=== PATIENT | male | born 1950 | race Caucasian/White ===

== ENCOUNTER 2017-02-15 18:35 | Emergency (ER) | payer MEDICARE, OTHER ==
[~2017-02-15] VITALS: Ht 180.3 cm; Wt 98.0 kg
[~2017-02-15 18:35] MED LIST: DIAZ5 PO; LOTR5CAP2 PO
[2017-02-15 18:59] VITALS: BP 142/72; PULSE 57; RESP 18; TEMP 98.7; O2SAT 96
--- NOTE | 2017-02-15 20:09 | PD ---
HPI Chief Complaint: Head Injury Time Seen by Provider: 20:02 Travel History International Travel<30 days: No Contact w/Intl Traveler<30days: No Traveled to known affect area: No History of Present Illness HPI 66 year-old male presents to the emergency department by private transportation for evaluation of head injury. According to the patient he has a history of hypertension and parkinsonism. Patient states that last night he went to bed feeling well and during the night he thinks he had a vivid dream and as per the dream he rolled out of bed hitting his head on the carpeted floor. Patient states he awakened immediately. Patient states that he felt mildly lightheaded. Patient was able to ambulate on his own without assistance to the kitchen where he obtained ice applied denies back and went back to bed and slept until 8 AM. Patient noted upon awakening that he still had some lightheadedness but was able to function and do his normal activities. Patient was able to take his normal medications. Patient takes no blood thinning agents. Patient states he was able to drive to a Parkinson's related conference and stayed there for 3 hours. Patient was with his . Patient continued to feel fairly stable except for some mild lightheadedness and intermittent mild nausea. Patient has had no vomiting. Patient denies any sudden onset worst ever headache. Patient denies any new visual disturbance. Patient denies any difficulty with speech or swallowing. Patient denies any neck pain. Patient denies any upper or lower extremity numbness tingling or weakness. Patient's had no new ataxia of gait. Patient drove himself to the hospital. Patient rates his discomfort 3/10 in intensity. Patient denies other concerns or complaints. No bladder or bowel dysfunction. No upper or lower back pain. [facility] Past Medical History Narrative Medical Hypertension, Parkinson's disease, daily alcohol use; no surgeries; nursing notes reviewed Hx Anticoagulant Therapy: No Cardiovascular Problems: Yes (HTN) Diabetes: No Diminished Hearing: No Hypertension: Yes Parkinson's Disease: Yes Immunizations Current: Yes Tetanus Vaccination: Unknown Influenza Vaccination: Yes Social History Alcohol Use: Yes ([employer] WEEKLY) Tobacco Use: No Substance Use: No Allergies-Medications (Allergen,Severity, Reaction): Coded Allergies: No Known Allergies (Verified , 02/15/17) Reported Meds & Prescriptions Reported Meds & Active Scripts Active Reported Flomax (Tamsulosin HCl) 0.4 Mg Cap 0.4 Mg PO HS Diazepam 5 Mg Tab 5 Mg PO HS PRN Benazepril (Benazepril HCl) 10 Mg Tab 10 Mg PO DAILY Amlodipine (Amlodipine Besylate) 5 Mg Tab 5 Mg PO DAILY Parkinson's medication blood pressure medication Review of Systems Except as stated in HPI: all other systems reviewed are Neg General / Constitutional: No: Fever, Chills Eyes: No: Diploplia, Blurred Vision, Photophobia HENT: Positive: Lightheadedness, No: Headaches, Neck Stiffness, Neck Pain Cardiovascular: No: Chest Pain or Discomfort Respiratory: No: Shortness of Breath Gastrointestinal: Positive: Nausea, No: Vomiting, Abdominal Pain Genitourinary: No: Flank Pain Musculoskeletal: No: Myalgias, Arthralgias Skin: No Rash Neurologic: Positive: Dizziness, No: Weakness, Syncope, Focal Abnormalities, Coordination Problem, Headache, Change in Mentation, Slurred Speech, Paresthesia , Seizures, Sensory Disturbance Psychiatric: No: Anxiety Endocrine: No: Heat Intolerance Hematologic/Lymphatic: No: Easy Bruising Physical Exam Narrative GENERAL: Well-developed well-nourished male in no acute distress no respiratory distress; GCS 15 SKIN: Warm and dry. HEAD: Atraumatic. Normocephalic. No scalp soft tissue swelling no abrasion no laceration no bony abnormalities. EYES: Pupils equal and round. Extraocular muscles intact. No scleral icterus. No injection or drainage. ENT: No nasal bleeding or discharge. Mucous membranes pink and moist. No hemotympanum. Airway is patent. NECK: Trachea midline. No JVD. No midline tenderness to direct palpation along the cervical spine no bony step-off no paracervical spasm patient moves neck through normal range of motion without complaint of discomfort. CARDIOVASCULAR: Regular rate and rhythm. Chest wall: Nontender to direct palpation no ecchymosis or abrasion or rib tenderness. RESPIRATORY: No accessory muscle use. Clear to auscultation. Breath sounds equal bilaterally. GASTROINTESTINAL: Abdomen soft, non-tender, nondistended. Hepatic and splenic margins not palpable. MUSCULOSKELETAL: Extremities without clubbing, cyanosis, or edema. No obvious deformities. No abrasions no erythema no ecchymosis. Radial and dorsalis pedis pulses 2+ to palpation. NEUROLOGICAL: Awake and alert. GCS 15. No obvious cranial nerve deficits. Motor grossly within normal limits. Five out of 5 muscle strength in the arms and legs. No limb ataxia. Sensory exam intact. DTRs 2+ and equal bilateral upper and lower extremities. Normal speech. PSYCHIATRIC: Appropriate mood and affect; insight and judgment normal. Data Data Last Documented VS Vital Signs Date Time Temp Pulse Resp B/P Pulse Ox O2 Delivery O2 Flow Rate FiO2 02/15/17 20:26 64 18 139/75 98 Room Air 02/15/17 18:[address] Brain W/O Iv Contrast(Rout) (02/15/17 ) MDM Medical Decision Making Medical Screen Exam Complete: Yes Emergency Medical Condition: Yes Medical Record Reviewed: Yes Interpretation(s) Last Impressions Head CT 02/15/17 0000 Signed Impressions: Service Date/Time: Wednesday, February 15, 2017 20:07 - CONCLUSION: Unremarkable study. Wendy iSmon MD Vital Signs Date Time Temp Pulse Resp B/P Pulse Ox O2 Delivery O2 Flow Rate FiO2 02/15/17 20:26 64 18 139/75 98 Room Air 02/15/17 19:14 57 18 96 Room Air 02/15/17 18:59 98.7 57 18 142/72 96 Differential Diagnosis Closed head injury, concussion, ICH, Narrative Course Patient sent for CT brain noncontrast CT brain noncontrast reveals no acute abnormality; patient is stable for outpatient management with head injury precautions 24 hours. Patient encouraged not to drive vehicle handle heavy equipment climb swim or drink alcohol during 24-hour observation as an outpatient following head injury precautions. Patient encouraged to follow-up with his primary care physician call office in a.m. to schedule follow-up appointment. Patient encouraged to return to the emergency department for any concerns or change in condition. Patient given prescription for Zofran to take as needed for nausea. Diagnosis Primary Impression: Minor closed head injury Referrals: Primary Care Physician 1 day Patient Instructions: General Instructions Additional Instructions: Continue current medications as presently prescribed Take acetaminophen as needed for fever 100.4F or greater or for mild discomfort Follow head injury precautions for [address] handle heavy equipment drink alcohol climb ladders or swim for the next 24 hours Follow-up with primary care provider; call office in a.m. to schedule follow-up appointment Return to the emergency department for any concerns or change in condition Med/Other Pt SpecificInfo: Prescription(s) given Scripts Ondansetron Odt (Zofran Odt)4 Mg Tab4 Mg SL Q6HR PRN (Nausea/Vomiting) #7 TAB Ref 0 Prov:Sarah Bradley MD 02/15/17 Disposition: 01 DISCHARGE HOME Condition: Stable Sarah Bradley MD Feb 15, 2017 20:09
[2017-02-15 20:26] VITALS: BP 139/75; PULSE 64; RESP 18; O2SAT 98
[2017-02-15] MEDS ORDERED: BENA10TA PO (20:26)
[2017-02-15] MEDS ORDERED: AMLO5TAB2 PO (20:26)
[2017-02-15] MEDS ORDERED: DIAZ5TAB PO (20:26)
[2017-02-15] MEDS ORDERED: TAMS5CAP PO (20:26)
--- NOTE | 2017-02-15 20:26 | RADHPO ---
EXAM DATE/TIME: 02/15/2017 20:07 [facility] COMPARISON: No previous studies available for comparison. INDICATIONS : Trauma, fall. RADIATION DOSE: 66.27 CTDIvol (mGy) MEDICAL HISTORY : Hypertension. SURGICAL HISTORY : None. ENCOUNTER: Initial ACUITY: 1 day PAIN SCALE: 5/10 LOCATION: cranial TECHNIQUE: Multiple contiguous axial images were obtained of the head. Using automated exposure control and adj ustment of the mA and/or kV according to patient size, radiation dose was kept as low as reasonably a chievable to obtain optimal diagnostic quality images. FINDINGS: There is no evidence for intracranial hemorrhage, mass effect, mass lesions, edema, or extra-axial fl uid collections. The visualized bony structures appear intact. The ventricles are normal size for t he patient's age. There are no signs of acute infarction for technique. CONCLUSION: Unremarkable study. Wendy Simon MD on February 15, 2017 at 20:24 Board Certified Radiologist. This report was verified electronically.
[2017-02-15] MEDS ORDERED: ZOFR4TAB3 SL (21:09)
[2017-02-15 21:32] VITALS: BP 136/74; PULSE 74; RESP 18; O2SAT 97
== END 2017-02-15 22:13 | disposition home or self-care (01) ==
LOC: PHED 18:35
DX: S09.90XA Unspecified injury of head, initial encounter (principal); R42 Dizziness and giddiness; G20 Parkinson's disease; I10 Essential (primary) hypertension; R11.0 Nausea; W06.XXXA Fall from bed, initial encounter; Y93.89 Activity, other specified; Y92.003 Bedroom of unspecified non-institutional (private) residence as the place of occurrence of the external cause; Y99.8 Other external cause status
CPT/HCPCS: 70450